=== PATIENT | male | born 1955 | race African-American/Black ===

== ENCOUNTER 2017-11-09 11:48 | Day surgery (SDC) | payer BC ==
[2017-11-02 08:34] VITALS: BMI 32.5
[2017-11-09] MEDS ORDERED: SUCCINYLCHOLINE CHLORIDE 200 MG/10 ML VIAL ONE (14:46)
[2017-11-09] MEDS ORDERED: PROPOFOL 20 ML ONE ×3 (14:46)
[2017-11-09] MEDS ORDERED: DEXAMETHASONE SOD PHOSPHATE 4 MG/1 ML VIAL ONE (14:55)
[2017-11-09] MEDS ORDERED: ceFAZolin SODIUM 1 GM VIAL ONE (14:55)
[2017-11-09] MEDS ORDERED: ONDANSETRON 4 MG/2 ML VIAL ONE ×2 (14:55→15:52)
[2017-11-09] MEDS ORDERED: BUPIVACAINE HCL 0.25% 125 MG/50 ML VIAL ONE (14:56)
[2017-11-09] MEDS ORDERED: ONDANSETRON 4 MG/2 ML VIAL IVPUSH ONE (15:52)
--- NOTE | 2017-11-09 15:56 | OP ---
DATE OF OPERATION: 11/09/2017 PREOPERATIVE DIAGNOSIS: Right knee medial meniscus tear. POSTOPERATIVE DIAGNOSIS: Right knee medial meniscus tear. PROCEDURE: Right knee arthroscopy with partial medial meniscectomy. SURGEON: Ronaldo Dixon MD ANESTHESIA: General. POSTOPERATIVE CONDITION: Stable. COMPLICATIONS: None. INDICATIONS: This is a 62-year-old gentleman who has been suffering from medial knee pain. MRI demonstrated medial meniscal tear as well as some degenerative change. Treatment options including nonoperative versus operative management were reviewed. Operative risks were reviewed in detail including bleeding, infection, neurovascular injury, need for further surgery, postoperative pain and stiffness, progression of osteoarthritis. We discussed medical risks such as heart attack, stroke, DVT, PE, and . I addressed the use of perioperative antibiotic and DVT prophylaxis. The patient voiced understanding and elected to proceed. DESCRIPTION OF PROCEDURE: The patient was brought to the operating room where general anesthesia was administered. The right lower extremity was prepped and draped in usual sterile fashion. A preoperative dose of antibiotics given and the usual timeout procedure was performed. The portals were now marked out on the skin. The skin was then injected subcutaneously with 0.25% Marcaine. An 11 blade was now used to establish the lateral portal. The arthroscope was then passed into the knee, and the patellofemoral joint was examined. There was near full-thickness cartilage loss on the superior medial aspect of the patella. There was deep fissuring along the trochlear groove. The arthroscope was passed into the notch. Here, the ACL and PCL were visualized to be intact. The arthroscope was then passed in the medial compartment. A medial portal was established under spinal needle localization. Examination of the medial compartment demonstrated some moderate-thickness, partial loss of the articular surface on both the femoral and tibial sides. A complex tear was noted extending from the root to the body of the medial meniscus. Utilizing meniscal biter as well as a shaver, this was debrided down to a stable base. The arthroscope was now passed into the lateral compartment. Here, there was some slight fraying of the articular surfaces. The meniscus was seen to be intact. Probing demonstrated no instability. At this point, the excess fluid was withdrawn from the knee. The portals were sutured using 3-0 nylon. Sterile dressings were placed. The patient was extubated and transferred to recovery room in stable condition. RONALDO DIXON M.D. [id number]
--- NOTE | 2017-11-09 15:57 | OP ---
Operative Note - Note: Operative Date: 11/09/17 Pre-Operative Diagnosis: right knee med meniscal tear Operation: right knee arthroscopy with partial medial menisectomy Post-Operative Diagnosis: Same as Pre-op Surgeon: Ronaldo Mcdaniel Anesthesiologist/SUPERVISOR GARAGE: Nicolette Uriostegui Anesthesia: General Operative Report Dictated: Yes
[2017-11-09] MEDS ORDERED: oxyCODONE HCL 5 MG TABLET PO PRN (15:58)
[2017-11-09] MEDS ORDERED: ONDANSETRON 4 MG/2 ML VIAL IVPUSH PRN (15:58)
[2017-11-09] MEDS ORDERED: LACTATED RINGERS SOLUTION 1,000 ML IV SCH (16:00)
[2017-11-09 16:48] VITALS: TEMP 97.8
[2017-11-09] MEDS ORDERED: oxyCODONE HCL 5 MG TABLET ONE (16:56)
[2017-11-09 17:26] VITALS: BP 149/84; PULSE 61
== END 2017-11-09 17:31 | disposition home or self-care (01) ==
LOC: FASU 11:48
PROVIDERS: ATTEND Orthopaedic Surgery Sports Medicine
PROC: 0SBC4ZZ Excision of Right Knee Joint, Percutaneous Endoscopic Approach (ICD-10-PCS; principal; 2017-11-09 15:05)
DX: S83.241A Other tear of medial meniscus, current injury, right knee, initial encounter (principal)
CPT/HCPCS: 94760

== ENCOUNTER 2024-10-24 07:06 | Day surgery (SDC) | payer BC ==
[2024-10-18 15:53] VITALS: BMI 35.2
[2024-10-24 07:35] LABS: HEMATOCRIT 50.7 % (40.1-51.0); HEMOGLOBIN 16.3 g/dL (13.7-17.5); MCHC 32.1 g/dl (32.3-36.5); MEAN CELL VOLUME 89.4 fl (79.0-92.2); MEAN PLT VOLUME 10.6 fl (9.4-12.4); PLATELET COUNT 216 x10^3/uL (163-337); RDW 12.9 % (12.2-16.4)
[2024-10-24 07:44] LABS: INR 1.05 (0.83-1.09); PROTHROMBIN TIME (PATIENT) 11.7 SEC (9.7-13.0)
[2024-10-24 07:46] LABS: ACTIVATED PTT 35.5 SECONDS (25.2-36.5)
[2024-10-24 07:52] LABS: CALCIUM 9.7 mg/dl (8.5-10.1); CREATININE 1.2 mg/dl (0.6-1.3)
[2024-10-24 08:20] VITALS: RESP 18
[2024-10-24] MEDS ORDERED: PROPOFOL 20 ML ONE ×2 (10:37→11:48)
[2024-10-24] MEDS ORDERED: DEXAMETHASONE SOD PHOSPHATE 4 MG/1 ML VIAL ONE (10:37)
[2024-10-24] MEDS ORDERED: MIDAZOLAM HCL 2 MG/2 ML SINGLE DOSE VIAL ONE (10:37)
[2024-10-24] MEDS ORDERED: ONDANSETRON 4 MG/2 ML VIAL ONE (10:37)
[2024-10-24] MEDS ORDERED: ROCURONIUM BROMIDE 50 MG/5 ML SYRINGE ONE ×2 (10:37→11:42)
[2024-10-24] MEDS ORDERED: SEVOFLURANE 250 ML BTL ONE (10:38)
[2024-10-24] MEDS ORDERED: ROPIVACAINE HCL/PF 100 MG/20 ML VIAL ONE (10:45)
[2024-10-24] MEDS ORDERED: EPINEPHrine 1:1,000 1,000 MCG/ML ML ONE (11:00)
[2024-10-24] MEDS ORDERED: ceFAZolin SODIUM 1 GM VIAL ONE (11:36)
[2024-10-24] MEDS ORDERED: SUGAMMADEX SODIUM 200 MG/2 ML VIAL ONE (11:42)
[2024-10-24] MEDS ORDERED: TRANEXAMIC ACID 1000 MG/10 ML VIAL ONE (11:47)
[2024-10-24] MEDS ORDERED: KETOROLAC TROMETHAMINE 30 MG/1 ML VIAL IVPUSH PRN (13:37)
[2024-10-24] MEDS ORDERED: oxyCODONE HCL 5 MG TABLET PO PRN ×2 (13:37)
[2024-10-24] MEDS ORDERED: LACTATED RINGERS SOLUTION 1,000 ML IV SCH (13:45)
[2024-10-24] MEDS ORDERED: ACETAMINOPHEN INJECTION 100 ML ONE (13:59)
[2024-10-24] MEDS: ACETAMINOPHEN 1000 MG/100 ML BAG IVPB PRN (14:00)
[2024-10-24 15:04] VITALS: PULSE 80; TEMP 97.7
[2024-10-24 15:28] VITALS: BP 134/75
== END 2024-10-24 16:02 | disposition home or self-care (01) ==
LOC: FASU 07:06
PROVIDERS: ATTEND Orthopaedic Surgery Sports Medicine
PROC: 0LQ14ZZ Repair Right Shoulder Tendon, Percutaneous Endoscopic Approach (ICD-10-PCS; principal; 2024-10-24 11:47)
DX: M75.101 Unspecified rotator cuff tear or rupture of right shoulder, not specified as traumatic (principal)
CPT/HCPCS: 36415; 80048; 85027; 85610; 85730; 93005; 94760; C1713